=== PATIENT | female | born 1995 | race American Indian/Alaskan Native ===

== ENCOUNTER 2018-08-13 16:49 | Emergency (ER) | payer OTHER ==
[2018-08-13 17:18] VITALS: BP 125/71
--- NOTE | 2018-08-13 17:38 | Emergency Department Report ---
Blank Doc - Documentation Documentation: 23 y/o female with acute diffuse abd pain with nausea and vomiting.
[2018-08-13 18:09] LABS: HCG Qualitative,Urine Negative (Negative)
[2018-08-13 18:12] LABS: Bacteria,Urine 1+ /HPF (Negative); Bilirubin,Urine NEG (Negative); Blood,Urine NEG (Negative); Color,Urine Amber (Yellow); Mucus,Urine 3+ /HPF
[2018-08-13 18:23] LABS: Alanine Aminotransferase 11 units/L (7-56); Albumin 4.3 g/dL (3.9-5); BUN/Creatinine Ratio 14; Basophils # (Auto) 0.1 K/mm3 (0.0-0.1); Blood Urea Nitrogen 10 mg/dL (7-17); Calcium 9.8 mg/dL (8.4-10.2); Eosinophils # (Auto) 0.1 K/mm3 (0.0-0.4); Hematocrit 39.5 % (30.3-42.9); Hemoglobin 13.6 gm/dl (10.1-14.3); Hemolysis Index 6; Lymphocytes # (Auto) 1.5 K/mm3 (1.2-5.4); Lymphocytes % (Auto) 16.3 % (13.4-35.0); Mean Corpuscular HGB Conc 35 % (30-34); Mean Corpuscular Volume 84 fl (79-97); Monocytes # (Auto) 0.4 K/mm3 (0.0-0.8); Platelet Count 413 K/mm3 (140-440); Red Blood Count 4.72 M/mm3 (3.65-5.03); Red Cell Distribution Width 17.8 % (13.2-15.2)
--- NOTE | 2018-08-13 19:53 | Cat Scan Report ---
CT ABDOMEN PELVIS W CON CLINICAL INDICATION: Female, 23 years of age. acute abd pain COMPARISON: None available. TECHNIQUE: Contiguous axial images were obtained. This CT exam was performed using one or more of th e following dose reduction techniques: automated exposure control, adjustment of the mA and/or kV acc ording to patient size, or use of iterative reconstruction technique. Additional sagittal and coronal reformatted images were obtained. IV contrast administered per institution protocol. Images are subm itted for interpretation. FINDINGS: Lung bases are clear. No calcified gallstones or biliary dilatation. Liver, spleen, pancrea s and adrenal glands are grossly unremarkable. No solid renal lesion. No hydronephrosis. Aorta and IV C are normal in caliber. Urinary bladder is unremarkable. Tampon is present within the vaginal vault. Uterus and ovaries are g rossly unremarkable by CT. Small amount of free fluid in the pelvis within physiologic limits. Visualized appendix is gas-filled and normal in caliber. Large and small bowel loops are normal in ca liber. Lumbar vertebral body heights preserved. Bony pelvis is grossly intact. IMPRESSION: 1. Small amount of free fluid in the pelvis within physiologic limits. Uterus and ovaries are grossly unremarkable by CT. 2. No other acute findings. Large and small bowel loops are normal in caliber. The appendix is normal in caliber. This document is electronically signed by Ann Marie Abrams DO., August 13 2018 07:51:21 PM ET
--- NOTE | 2018-08-13 20:42 | Emergency Department Report ---
ED Abdominal Pain HPI - General Chief Complaint: Abdominal Pain Stated Complaint: ABD PAIN Time Seen by Provider: 08/13/18 19:38 Source: patient, EMS Mode of arrival: Ambulatory Limitations: No Limitations - History of Present Illness Initial Comments: pt is a 23 y/o aaf who presents for lower abd pain 4/10 x 1 week. pt states symptoms worsened with onset of menses, there is some urinary fequency, no vaginal discharge, there is no fever or chills, positive intermittent nausea. pt is tolerating po intake at this time, she has not taken otc nsaids for pain. MD Complaint: abdominal pain Onset/Timin -: week(s) Location: LLQ, suprapubic Radiation: suprapubic Severity: moderate Severity scale (0 -10): 3 Quality: cramping, aching Consistency: constant Improves With: nothing Worsens With: nothing Associated Symptoms: nausea, dysuria - Related Data LMP Date: 08/11/18 LMP (females 10-50): this week Previous Rx's Medication Instructions Recorded Last Taken Type Ibuprofen 800 mg PO TID PRN #30 tablet 08/13/18 Unknown Rx Nitrofurantoin Monohyd/M-Cryst 100 mg PO BID 7 Days #14 capsule 08/13/18 Unknown Rx [Macrobid 100 mg Capsule] Ondansetron [Zofran Odt] 4 mg PO Q8HR PRN #12 tab.rapdis 08/13/18 Unknown Rx Allergies Allergy/AdvReac Type Severity Reaction Status Date / Time No Known Allergies Allergy Unverified 08/13/18 16:50 ED Review of Systems ROS: Stated complaint: ABD PAIN Other details as noted in HPI Constitutional: denies: chills, fever Eyes: denies: eye pain, eye discharge, vision change ENT: denies: ear pain, throat pain Respiratory: denies: cough, shortness of breath, wheezing Cardiovascular: denies: chest pain, palpitations Endocrine: no symptoms reported Gastrointestinal: nausea. denies: abdominal pain, vomiting, diarrhea, constipation, hematemesis Genitourinary: dysuria, frequency. denies: urgency, hematuria, discharge Musculoskeletal: denies: back pain, joint swelling, arthralgia Skin: denies: rash, lesions Neurological: denies: headache, weakness, paresthesias Psychiatric: denies: anxiety, depression Hematological/Lymphatic: denies: easy bleeding, easy bruising ED Past Medical Hx - Past Medical History Previous Medical History?: No - Surgical History Past Surgical History?: Yes Additional Surgical History: Tonsils and adenoids - Social History Smoking Status: Current Every Day Smoker Substance Use Type: None - Medications Home Medications: Home Medications Medication Instructions Recorded Confirmed Last Taken Type Ibuprofen 800 mg PO TID PRN #30 tablet 08/13/18 Unknown Rx Nitrofurantoin Monohyd/M-Cryst 100 mg PO BID 7 Days #14 capsule 08/13/18 Unknown Rx [Macrobid 100 mg Capsule] Ondansetron [Zofran Odt] 4 mg PO Q8HR PRN #12 tab.rapdis 08/13/18 Unknown Rx ED Physical Exam - General Limitations: No Limitations General appearance: alert, in no apparent distress - Head Head exam: Present: atraumatic, normocephalic - Eye Eye exam: Present: normal appearance, PERRL, EOMI Pupils: Present: normal accommodation - ENT ENT exam: Present: mucous membranes moist - Neck Neck exam: Present: normal inspection, full ROM. Absent: tenderness, lymphadenopathy, thyromegaly - Respiratory Respiratory exam: Present: normal lung sounds bilaterally. Absent: respiratory distress, stridor - Cardiovascular Cardiovascular Exam: Present: regular rate, normal rhythm, normal heart sounds. Absent: systolic murmur, diastolic murmur, rubs, gallop - GI/Abdominal GI/Abdominal exam: Present: soft, normal bowel sounds. Absent: distended, tenderness, guarding, rebound, rigid, bruit, hernia - Rectal Rectal exam: Present: deferred - Extremities Exam Extremities exam: Present: normal inspection, full ROM, normal capillary refill. Absent: tenderness - Back Exam Back exam: Present: normal inspection, full ROM. Absent: tenderness, CVA tenderness (R), CVA tenderness (L), muscle spasm, rash noted - Neurological Exam Neurological exam: Present: alert, oriented X3, CN II-XII intact, normal gait, reflexes normal - Psychiatric Psychiatric exam: Present: normal affect, normal mood - Skin Skin exam: Present: warm, dry, intact, normal color. Absent: rash ED Course Vital Signs 08/13/18 17:17 Temperature 99.2 F Pulse Rate 58 L Respiratory 18 Rate Blood Pressure 125/71 O2 Sat by Pulse 100 Oximetry ED Medical Decision Making - Lab Data Result diagrams: 08/13/18 17:40 08/13/18 17:40 Labs 08/13/18 08/13/18 08/13/18 17:40 17:40 Unknown WBC 9.3 RBC 4.72 Hgb 13.6 Hct 39.5 MCV 84 MCH 29 MCHC 35 H RDW 17.8 H Plt Count 413 Lymph % (Auto) 16.3 [place] % (Auto) [employer] Eos % (Auto) 1.0 Baso % (Auto) 1.0 Lymph # 1.5 [place] # 0.4 Eos # 0.1 Baso # 0.1 Seg Neutrophils % [employer] Seg Neutrophils # 7.2 Sodium 142 Potassium 4.5 Chloride 106.0 Carbon Dioxide 25 Anion Gap 16 BUN 10 Creatinine 0.7 Estimated GFR > 60 BUN/Creatinine Ratio 14 Glucose 113 H Calcium 9.8 Total Bilirubin 0.50 AST 14 ALT 11 Alkaline Phosphatase 59 Total Protein 7.8 Albumin 4.3 Albumin/Globulin Ratio 1.2 Urine Color [place] Urine Turbidity Cloudy Urine pH 5.0 Ur Specific [place] 1.031 H Urine Protein 100 mg/dl Urine Glucose (UA) Neg Urine Ketones 20 Urine Blood Neg Urine Nitrite Neg Ur Reducing Substances Not Reportable Urine Bilirubin Neg Urine Ictotest Not Reportable Urine Urobilinogen 2.0 Ur Leukocyte Esterase Neg Urine WBC (Auto) 7.0 H Urine RBC (Auto) 6.0 U Epithel Cells (Auto) 3.0 Urine Bacteria (Auto) 1+ Urine Mucus 3+ Urine HCG, Qual Negative - Radiology Data Radiology results: report reviewed, image reviewed [facility] [address] [place] [address] Cat Scan Report Signed Patient: JEFF NESBITT MR#: [id number] : 1995 Acct:[id number] Age/Sex: 23 / F ADM Date: 08/13/18 Loc: ED Attending Dr: Ordering Physician: WALTER DING Date of Service: 08/13/18 Procedure(s): CT abdomen pelvis w con Accession Number(s): [id number] cc: WALTER DING CT ABDOMEN PELVIS W CON CLINICAL INDICATION: Female, 23 years of age. acute abd pain COMPARISON: None available. TECHNIQUE: Contiguous axial images were obtained. This CT exam was performed using one or more of the following dose reduction techniques: automated exposure control, adjustment of the mA and/or kV according to patient size, or use of iterative reconstruction technique. Additional sagittal and coronal reformatted images were obtained. IV contrast administered per institution protocol. Images are submitted for interpretation. FINDINGS: Lung bases are clear. No calcified gallstones or biliary dilatation. Liver, spleen, pancreas and adrenal glands are grossly unremarkable. No solid renal lesion. No hydronephrosis. Aorta and IVC are normal in caliber. Urinary bladder is unremarkable. Tampon is present within the vaginal vault. Uterus and ovaries are grossly unremarkable by CT. Small amount of free fluid in the pelvis within physiologic limits. Visualized appendix is gas-filled and normal in caliber. Large and small bowel loops are normal in caliber. Lumbar vertebral body heights preserved. Bony pelvis is grossly intact. IMPRESSION: 1. Small amount of free fluid in the pelvis within physiologic limits. Uterus and ovaries are grossly unremarkable by CT. 2. No other acute findings. Large and small bowel loops are normal in caliber. The appendix is normal in caliber. This document is electronically signed by Ann Marie Abrams DO., August 13 2018 07: 51:21 PM ET Transcribed By: LMA Dictated By: TELMA ABRAMS MD Electronically Authenticated By: TELMA ABRAMS MD Signed Date/Time: 08/13/181952 DD/ 39 TD/TT: 08/13/181939 - Medical Decision Making ct abd normal no mass no bleed no acute findings, ua: noted wbc, given urinary frequency and dysuria, no vaginal discharge no fever or chills will tx with macrobid, ibuprofen, pt will follow up with pcp in 2-3 days , pt verbalized agreement and understanding of discharge plan. Critical care attestation.: If time is entered above; I have spent that time in minutes in the direct care of this critically ill patient, excluding procedure time. ED Disposition Clinical Impression: Dysmenorrhea Abdominal pain Qualifiers: Abdominal location: left lower quadrant Qualified Code(s): R10.32 - Left lower quadrant pain UTI (urinary tract infection) Qualifiers: Urinary tract infection type: acute cystitis Hematuria presence: without hematuria Qualified Code(s): N30.00 - Acute cystitis without hematuria Disposition: TO HOME OR SELFCARE Is pt being admited?: No Does the pt Need Aspirin: No Condition: Stable Instructions: Abdominal Pain (ED) Prescriptions: Ibuprofen 800 mg PO TID PRN #30 tablet PRN Reason: pain Nitrofurantoin Monohyd/M-Cryst [Macrobid 100 mg Capsule] 100 mg PO BID 7 Days #14 capsule Ondansetron [Zofran Odt] 4 mg PO Q8HR PRN #12 tab.rapdis PRN Reason: Nausea And Vomiting Referrals: FRANKLIN SEVERINO MD [Staff Physician] - 3-5 Days Forms: Work/School Release Form(ED) Time of Disposition: 20:49
[2018-08-13] MEDS ORDERED: TORADOL IM ONE (20:45)
== END 2018-08-13 20:51 | disposition home or self-care (01) ==
LOC: ED 16:49
DX: N39.0 Urinary tract infection, site not specified (principal); N94.6 Dysmenorrhea, unspecified; F17.200 Nicotine dependence, unspecified, uncomplicated; Z90.89 Acquired absence of other organs
CPT/HCPCS: 36415; 74177; 80053; 81001; 81025; 85025; 96372; 99284; J1885; Q9967